=== PATIENT | male | born 1960 | race Caucasian/White ===

== ENCOUNTER 2022-09-23 15:16 | Inpatient (IN) | payer OTHER ==
[~2022-09-23] VITALS: Ht 182.9 cm; Wt 99.8 kg
--- NOTE | 2022-09-23 15:17 | NUR ---
PATIENT BIBA TO LOBBY
[2022-09-23 16:30] VITALS: BP 137/93
[2022-09-23 17:54] LABS: BASOPHILS # (AUTO) 0.2 K/uL (0.00-0.22); EOSINOPHILS # (AUTO) 0.2 K/uL (0-0.4); EOSINOPHILS % (AUTO) 2.6 % (0.0-4.0); HEMATOCRIT 41.1 % (36-52); HEMOGLOBIN 13.8 g/dL (12.0-18.0); LYMPHOCYTES # (AUTO) 1.9 K/uL (2.0-11.5); LYMPHOCYTES % (AUTO) 28.4 % (20.5-51.1); MEAN CORPUSCULAR HEMOGLOBIN 31 pg (27-31); MEAN CORPUSCULAR HGB CONC 34 g/dL (33-37); MEAN CORPUSCULAR VOLUME 91.6 fL (80-94); MONOCYTES # (AUTO) 0.7 K/uL (0.8-1.0); MONOCYTES % (AUTO) 9.9 % (1.7-9.3); NEUTROPHILS # (AUTO) 3.7 K/uL (1.8-7.7); NEUTROPHILS % (AUTO) 56.1 % (42.2-75.2); PLATELET COUNT (AUTO) 251 K/uL (140-450); RED BLOOD CELL COUNT(AUTO) 4.48 MIL/uL (4.20-6.10); RED CELL DISTRIBUTION WIDTH 14.9 % (11.6-13.7); WHITE BLOOD COUNT (AUTO) 6.6 K/uL (4.8-10.8)
[2022-09-23 18:08] LABS: ALBUMIN 3.4 g/dL (3.4-5.0); ANION GAP 11.4 (8-16); CARBON DIOXIDE 30.6 mmol/L (21-32); CREATININE 1.2 mg/dL (0.6-1.3); TOTAL BILIRUBIN 0.3 mg/dL (0.0-1.0)
[2022-09-23] MEDS ORDERED: methylPREDNISolone SS 125 MG/2 ML VIAL IVP ONE (20:55)
--- NOTE | 2022-09-23 21:04 | NUR ---
PT FATHER SHARON LEFT CONTACT INFO FOR UPDATES:
[2022-09-23] MEDS ORDERED: LORazepam 2 MG/ML VIAL IVP PRN (21:10)
[2022-09-23] MEDS ORDERED: ONDANSETRON 4 MG/2 ML VIAL IVP PRN (21:10)
[2022-09-23] MEDS ORDERED: ACETAMINOPHEN 325 MG TAB PO PRN (21:10)
[2022-09-23] MEDS ORDERED: ZOLPIDEM 10 MG TAB PO PRN (21:10)
[2022-09-23] MEDS ORDERED: DOCUSATE SODIUM 100 MG GELCAP PO PRN (21:10)
[2022-09-23] MEDS ORDERED: POTASSIUM CHLORIDE 10 MEQ TABER PO PRN (21:10)
[2022-09-23] MEDS ORDERED: CLONIDINE HYDROCHLORIDE 0.1 MG TAB PO PRN (21:10)
--- NOTE | 2022-09-23 21:15 | NUR ---
Dr. Black examining patient.
--- NOTE | 2022-09-23 21:25 | NUR ---
PT TAKEN TO BED 3
--- NOTE | 2022-09-23 21:28 | NUR ---
Patient BIB by his family. C/O bilateral legs pain x today. Patient reported, had chronic back pain and bilteral legs pain for years. PMHx: HTN, HLD, ETOH abuse Meds: Metoprolol, [employer] and Zoloft (per patient reported, unknown dose)
[2022-09-23] MEDS ORDERED: methylPREDNISolone SS 125 MG/2 ML VIAL ONE (22:45)
[2022-09-23] MEDS: NACL 0.9% 1,000 ML IV SCH (22:54)
[2022-09-24] MEDS ORDERED: SERT25TA PO (00:48)
[2022-09-24] MEDS ORDERED: METO25TA14 PO (00:48)
[2022-09-24] MEDS ORDERED: HYDR-5080 PO (00:48)
--- NOTE | 2022-09-24 01:06 | NUR ---
Patient appears to be resting comfortably in bed. Vital Signs within normal limits. Respirations even and unlabored.
--- NOTE | 2022-09-24 02:09 | NUR ---
Patient appears to be resting comfortably in bed. Respirations even and unlabored.
--- NOTE | 2022-09-24 04:18 | NUR ---
Assisted patient to restroom, Patient reported, had headache and legs pain, 01/16
[2022-09-24] MEDS: MORPHINE SULFATE 2 MG/ML SYR IVP PRN (04:27)
--- NOTE | 2022-09-24 04:29 | NUR ---
PATIENT COMPLAINING OF LOW BACK PAIN AND MIGRAINE 01/16. PRN MORPHINE PROVIDED PER MD ORDERS.
--- NOTE | 2022-09-24 05:48 | NUR ---
Patient appears to be resting comfortably in bed. Vital Signs within normal limits. Respirations even and unlabored.
--- NOTE | 2022-09-24 06:59 | NUR ---
Patient appears to be resting comfortably in bed. Vital Signs within normal limits. Respirations even and unlabored.
--- NOTE | 2022-09-24 07:24 | NUR ---
Report given to GEOFF Ariza and endorse care of patient.
[2022-09-24 07:30] LABS: BASOPHILS % (AUTO) 0.4 % (0.0-2.0); EOSINOPHILS % (AUTO) 0.1 % (0.0-4.0); HEMATOCRIT 39.9 % (36-52); HEMOGLOBIN 13.4 g/dL (12.0-18.0); LYMPHOCYTES # (AUTO) 0.8 K/uL (2.0-11.5); LYMPHOCYTES % (AUTO) 19.6 % (20.5-51.1); MEAN CORPUSCULAR HEMOGLOBIN 31 pg (27-31); MEAN CORPUSCULAR HGB CONC 34 g/dL (33-37); MEAN CORPUSCULAR VOLUME 91.7 fL (80-94); MONOCYTES # (AUTO) 0.1 K/uL (0.8-1.0); MONOCYTES % (AUTO) 1.6 % (1.7-9.3); NEUTROPHILS # (AUTO) 3.3 K/uL (1.8-7.7); NEUTROPHILS % (AUTO) 78.3 % (42.2-75.2); PLATELET COUNT (AUTO) 238 K/uL (140-450); RED BLOOD CELL COUNT(AUTO) 4.36 MIL/uL (4.20-6.10); RED CELL DISTRIBUTION WIDTH 14.5 % (11.6-13.7); WHITE BLOOD COUNT (AUTO) 4.2 K/uL (4.8-10.8)
--- NOTE | 2022-09-24 08:00 | NUR ---
RECEIVED PATIENT FROM ED NURSE. PATIENT AWAKE AND ALERT. UNABLE TO AMBUKATE DUE TO CURRENT CONDIITION
--- NOTE | 2022-09-24 08:18 | NUR ---
Patient will be admitted to care of DR SAINZ. Admited to Med/Surg. Will go to room 105A. Belongings list completed. Report to ROSINA.
[2022-09-24 09:20] LABS: APPEARANCE,URINE CLEAR (CLEAR); BILIRUBIN,URINE NEGATIVE (NEGATIVE); BLOOD, URINE NEGATIVE (NEGATIVE); COLOR,URINE YELLOW (YELLOW); LEUKOCYTE ESTERASE ,URINE NEGATIVE (NEGATIVE); NITRITE, URINE NEGATIVE (NEGATIVE); PH,URINE 5.5 (5.0-9.0); UGLUCOSE NEGATIVE (NEGATIVE)
[2022-09-24] MEDS: NACL 0.9% 1,000 ML IV SCH ×2 (09:40→22:57)
[2022-09-24 10:27] LABS: ANION GAP 13.5 (8-16); CARBON DIOXIDE 23.7 mmol/L (21-32); CREATININE 0.7 mg/dL (0.6-1.3); POTASSIUM 4.2 mmol/L (3.5-5.1)
[2022-09-24] MEDS ORDERED: LORazepam 2 MG/ML VIAL IVP PRN (11:00)
[2022-09-24] MEDS ORDERED: ZOLPIDEM 10 MG TAB PO PRN (11:00)
[2022-09-24] MEDS ORDERED: ACETAMINOPHEN 325 MG TAB PO PRN (11:00)
[2022-09-24] MEDS ORDERED: MAG SULF 2000 MG/WATER PREMIX 50 ML IV PRN (11:00)
[2022-09-24] MEDS ORDERED: DOCUSATE SODIUM 100 MG GELCAP PO PRN (11:00)
[2022-09-24] MEDS ORDERED: POTASSIUM CHLORIDE 10 MEQ TABER PO PRN (11:00)
[2022-09-24] MEDS ORDERED: MORPHINE SULFATE 2 MG/ML SYR IVP PRN (11:00)
[2022-09-24] MEDS ORDERED: ONDANSETRON 4 MG/2 ML VIAL IVP PRN (11:00)
--- NOTE | 2022-09-24 14:43 | NUR ---
DC [age] YRS OLD MALE PATIENT WAS ADMITTED FROM [facility] WITH A DX OF NEUROPATHY. PATIENT HAS A HX OF ALCOHOL ABUSE, HTN, HLD, BPH, AND CHRONIC BACK PAIN. PATIENT HAS AN ORDER FOR LTAC FAXED TO [facility]. [facility] TO FOLLOW Addendum: 09/27/22 at 4881 by LINDA REESE CM RECEIVED ORDER FOR PATIENT TO GET HOME HEALTH FOR PT. FAXED ALL PAPERWORK TO [facility]. Addendum: 09/27/22 at 7745 by LINDA REESE CM RECEIVED CALL FROM [facility] [phone] SPOKE WITH BEENA WHO SAID THAT THEY WILL ACCEPT PATIENT AND WILL BE CONTACTING PATIENT DIRECTLY.
--- NOTE | 2022-09-24 19:30 | NUR ---
RECEIVED PT , ON BED AWAKE, ALERT AND VERBALLY RESPONSIVE. PT DENIES PAIN AT THIS TIME. IV SITE IS ON LEFT HAND 22G. PT IS ON MED SURG. DIET OF REGULAR. PT AMBULATES BY HIMSELF TO RESTROOM.
[2022-09-24] MEDS: METOPROLOL 25 MG TAB PO SCH (20:50)
--- NOTE | 2022-09-24 22:00 | NUR ---
PT SLEEPING WELL WITH NO FACIAL GRIMACING.
[2022-09-24] MEDS: MAG SULF 2000 MG/WATER PREMIX 50 ML IV PRN (22:58)
--- NOTE | 2022-09-25 | NUR ---
PT IS ASLEEP, AROUSABLE ON STIMULI.
[2022-09-25 04:00] VITALS: BP 130/77
--- NOTE | 2022-09-25 04:00 | NUR ---
VITAL SIGNS CHECK, PT DENIES OF PAIN.
--- NOTE | 2022-09-25 07:10 | NUR ---
RECEIVED PATIENT FROM PM NURSE FOR CONTINUATION OF CARE. PATIENT SEEN AWAKE AND ALERT. PLAN OF CARE REVIEWED. PATIENT CARE CONTINUED.
[2022-09-25 07:24] LABS: BASOPHILS % (AUTO) 0.8 % (0.0-2.0); EOSINOPHILS # (AUTO) 0.1 K/uL (0-0.4); EOSINOPHILS % (AUTO) 1.4 % (0.0-4.0); HEMATOCRIT 37.7 % (36-52); LYMPHOCYTES # (AUTO) 1.9 K/uL (2.0-11.5); LYMPHOCYTES % (AUTO) 37.9 % (20.5-51.1); MEAN CORPUSCULAR HEMOGLOBIN 31 pg (27-31); MEAN CORPUSCULAR HGB CONC 34 g/dL (33-37); MEAN CORPUSCULAR VOLUME 90.5 fL (80-94); MONOCYTES # (AUTO) 0.4 K/uL (0.8-1.0); NEUTROPHILS # (AUTO) 2.5 K/uL (1.8-7.7); NEUTROPHILS % (AUTO) 50.9 % (42.2-75.2); PLATELET COUNT (AUTO) 234 K/uL (140-450); RED BLOOD CELL COUNT(AUTO) 4.17 MIL/uL (4.20-6.10); RED CELL DISTRIBUTION WIDTH 14.7 % (11.6-13.7); WHITE BLOOD COUNT (AUTO) 4.9 K/uL (4.8-10.8)
[2022-09-25 07:42] LABS: ANION GAP 11.7 (8-16); CARBON DIOXIDE 27.7 mmol/L (21-32); CREATININE 0.8 mg/dL (0.6-1.3); POTASSIUM 3.4 mmol/L (3.5-5.1)
[2022-09-25] MEDS: SERTRALINE 50 MG TAB PO SCH (09:13)
[2022-09-25] MEDS: METOPROLOL 25 MG TAB PO SCH ×2 (09:14→20:31)
--- NOTE | 2022-09-25 09:29 | NUR ---
PATIENT HAS BEEN SCREENED AND CATEGORIZED LOW NUTRITION RISK. PATIENT WILL BE SEEN WITHIN 7 DAYS OF ADMISSION. 09/30/[address]
[2022-09-25] MEDS: NACL 0.9% 1,000 ML IV SCH ×2 (10:40→23:10)
[2022-09-25 13:26] LABS: OPIATE, URINE POSITIVE ng/mL (NEG <=2000)
[2022-09-25 13:27] LABS: BARBITURATE, URINE NEGATIVE ng/ml (NEG <=200); BENZODIAZEPINE, URINE POSITIVE ng/mL (NEG <=200); CANNABINOID, URINE NEGATIVE ng/mL (NEG <=50); COCAINE, URINE NEGATIVE ng/mL (NEG <=300); PHENCYCLIDINE SCREEN,URINE NEGATIVE ng/mL (NEG <=25)
--- NOTE | 2022-09-25 15:40 | NUR ---
PATIENT COMPLAINS OF PAIN. MORPHINE GIVEN .
[2022-09-25 16:00] VITALS: BP 171/98
--- NOTE | 2022-09-25 16:35 | NUR ---
retail supervisor followed up on the referral to [facility], spoke with Colton who states the referral is still being process. Colton will follow up with house manager in am. Addendum: 09/26/22 at 0858 by Denise Gonzáles retail supervisor updated on Neuro documentation by [facility] charge nurse Deneen, liaison for [facility] informed of Neuro recommendations, waiting for reply regarding LTAC referral.
--- NOTE | 2022-09-25 16:53 | NUR ---
PATIENT PAIN REASSESEED. PAINSCIRE 0/10
--- NOTE | 2022-09-25 19:30 | NUR ---
RECEIVED PT FROM AM NURSE FOR CONTINUITY OF CARE. PT IS STABLE
[2022-09-25 20:00] VITALS: BP 147/80
--- NOTE | 2022-09-25 23:10 | NUR ---
PATIENT REFUSED IV FLUIDS. EXPLAINED THE BENEFITS BUT STILL REFUSED
[2022-09-26 04:00] VITALS: BP 129/72
[2022-09-26 07:05] LABS: BASOPHILS % (AUTO) 1.3 % (0.0-2.0); EOSINOPHILS # (AUTO) 0.1 K/uL (0-0.4); EOSINOPHILS % (AUTO) 1.7 % (0.0-4.0); HEMOGLOBIN 12.8 g/dL (12.0-18.0); LYMPHOCYTES # (AUTO) 1.6 K/uL (2.0-11.5); LYMPHOCYTES % (AUTO) 41.1 % (20.5-51.1); MEAN CORPUSCULAR HEMOGLOBIN 31 pg (27-31); MEAN CORPUSCULAR HGB CONC 34 g/dL (33-37); MEAN CORPUSCULAR VOLUME 90.6 fL (80-94); MONOCYTES # (AUTO) 0.4 K/uL (0.8-1.0); MONOCYTES % (AUTO) 11.3 % (1.7-9.3); NEUTROPHILS # (AUTO) 1.7 K/uL (1.8-7.7); NEUTROPHILS % (AUTO) 44.6 % (42.2-75.2); PLATELET COUNT (AUTO) 229 K/uL (140-450); RED CELL DISTRIBUTION WIDTH 14.8 % (11.6-13.7); WHITE BLOOD COUNT (AUTO) 3.9 K/uL (4.8-10.8)
--- NOTE | 2022-09-26 07:07 | NUR ---
ENDORSED PT TO AM NURSE FOR CONTINUITY OF CARE. PT IS STABLE
--- NOTE | 2022-09-26 07:07 | NUR ---
RECEIVED PATIENT FROM PM NURSE FOR CONTINUATION OF CARE. PATIENT SEEN ON BED WITH NORMAL RISE AND FALL OF CHEST. CARE PLAN REVIEWED, PATIENT CARE CONTINUED.
[2022-09-26 07:26] LABS: ANION GAP 11.8 (8-16); CARBON DIOXIDE 26.2 mmol/L (21-32); CREATININE 0.7 mg/dL (0.6-1.3)
[2022-09-26 08:00] VITALS: BP 136/79
[2022-09-26] MEDS: METOPROLOL 25 MG TAB PO SCH ×2 (09:26→20:13)
[2022-09-26] MEDS: SERTRALINE 50 MG TAB PO SCH (09:27)
[2022-09-26] MEDS: MORPHINE SULFATE 2 MG/ML SYR IVP PRN (10:54)
[2022-09-26] MEDS: NACL 0.9% 1,000 ML IV SCH (11:40)
[2022-09-26 16:00] VITALS: BP 129/72
[2022-09-26] MEDS: MAG SULF 2000 MG/WATER PREMIX 50 ML IV PRN (17:58)
--- NOTE | 2022-09-26 19:10 | NUR ---
ENDORSED PATIENT TO PM NURSE FOR CONTINUATION OF CARE.
--- NOTE | 2022-09-26 19:15 | NUR ---
received pt from am nurse for continuity of care.pt is stable
[2022-09-26 20:00] VITALS: BP 152/78
[2022-09-27] MEDS: NACL 0.9% 1,000 ML IV SCH (00:06)
--- NOTE | 2022-09-27 01:00 | NUR ---
PATIENT ASLEEP, ALL SAFETY MEASURES IN PLACE, NO DISTRESS NOTED
[2022-09-27 04:00] VITALS: BP 126/82
[2022-09-27 06:56] LABS: BASOPHILS # (AUTO) 0.1 K/uL (0.00-0.22); BASOPHILS % (AUTO) 1.1 % (0.0-2.0); EOSINOPHILS # (AUTO) 0.1 K/uL (0-0.4); EOSINOPHILS % (AUTO) 2.3 % (0.0-4.0); HEMOGLOBIN 12.8 g/dL (12.0-18.0); MEAN CORPUSCULAR HEMOGLOBIN 31 pg (27-31); MEAN CORPUSCULAR HGB CONC 34 g/dL (33-37); MONOCYTES # (AUTO) 0.7 K/uL (0.8-1.0); MONOCYTES % (AUTO) 12.7 % (1.7-9.3); NEUTROPHILS # (AUTO) 2.8 K/uL (1.8-7.7); NEUTROPHILS % (AUTO) 48.9 % (42.2-75.2); PLATELET COUNT (AUTO) 254 K/uL (140-450); RED BLOOD CELL COUNT(AUTO) 4.17 MIL/uL (4.20-6.10); RED CELL DISTRIBUTION WIDTH 14.8 % (11.6-13.7); WHITE BLOOD COUNT (AUTO) 5.7 K/uL (4.8-10.8)
[2022-09-27 07:01] LABS: CARBON DIOXIDE 27.2 mmol/L (21-32); CREATININE 0.9 mg/dL (0.6-1.3); POTASSIUM 4.2 mmol/L (3.5-5.1)
--- NOTE | 2022-09-27 07:12 | NUR ---
RECEIVED PATIENT FROM PM NURSE FOR CONTINUATION OF CARE. PT SEEN ON BED ASLEEP. NORMAL RISE AND FALL OF CHEST. PATIENT CARE PLAN SEEN. PATIENT CARE CONTINUED.
[2022-09-27 08:00] VITALS: BP 125/75
[2022-09-27] MEDS: METOPROLOL 25 MG TAB PO SCH (09:54)
[2022-09-27] MEDS: SERTRALINE 50 MG TAB PO SCH (09:54)
[2022-09-27 11:59] VITALS: BP 125/75
== END 2022-09-27 14:50 | disposition home or self-care (01) | DRG 552 ==
LOC: MED 15:16 → MMU 21:00 → MTU 09-24 05:25
PROVIDERS: ADMIT General Practice; ATTEND General Practice
DX: M51.36 Other intervertebral disc degeneration, lumbar region (principal); G61.0 Guillain-Barre syndrome; G90.8 Other disorders of autonomic nervous system; G62.9 Polyneuropathy, unspecified; F10.10 Alcohol abuse, uncomplicated; Y90.9 Presence of alcohol in blood, level not specified; E78.5 Hyperlipidemia, unspecified; N40.0 Benign prostatic hyperplasia without lower urinary tract symptoms; G89.29 Other chronic pain; M54.9 Dorsalgia, unspecified; F32.9 Major depressive disorder, single episode, unspecified; Z20.822 Contact with and (suspected) exposure to COVID-19; Z88.8 Allergy status to other drugs, medicaments and biological substances; Z79.899 Other long term (current) drug therapy; Z79.1 Long term (current) use of non-steroidal anti-inflammatories (NSAID); Z79.891 Long term (current) use of opiate analgesic
CPT/HCPCS: 36415; 80048; 80053; 80305; 81003; 83036; 83605; 83735; 83880; 84484; 85025; 87040; 87081; 87086; 93005; 96374; 97116; 97163-GP; 97530; 99285; J1644; J2270; J2930; J3475